=== PATIENT | male | born 1940 | race Caucasian/White ===

== ENCOUNTER → 2019-02-26 | Outpatient (CLI) | payer MEDICARE, OTHER ==
[~2019-02-26] MED LIST: ALL DAY ALLERGY10 M3; BENTYL 20 MG TA20 M1 PO; CELEXA20 MG PO; FLOMAX0.4 MG PO; LIBRAX; LISINOPRIL-HCT1 EACH PO; LISINOPRIL10 MG; LOMOTIL TABLET1 EACH PO; METFORMIN HCL500 MG PO; OMEPRAZOLE20 M2; PROSCAR 5MG TABL5 MG PO; SINGULAIR 10 MG10 M1; TOPROL XL25 MG PO; TOVIAZ4 M1 PO; WELCHOL 625 MG625 MG; ZANAFLEX4 MG PO
== END ==
LOC: M.LAB 10:21
DX: R19.7 Diarrhea, unspecified (principal)